=== PATIENT | female | born 1960 | race Caucasian/White ===

== ENCOUNTER → 2019-10-08 11:09 | Outpatient (CLI) | payer OTHER, SELFPAY ==
--- NOTE | ~2019-10-08 | XR_ITS ---
EXAMINATION: XR shoulder RT min 2V EXAM DATE: 10/08/2019 11:28 INDICATION: Right shoulder pain since shoveling one month ago. TECHNIQUE: The following right shoulder projections obtained: frontal projection with internal rotati on, frontal projection with external rotation, Grashey, and axillary (4+ views). There is no prior s tudy for comparison. FINDINGS: There is high riding humeral head, could indicate rotator cuff tear. There is moderate gl enohumeral, mild acromioclavicular joint primary osteoarthritis. There are no acute fractures or disl ocations identified. There is no subcutaneous gas. The soft tissue is unremarkable. There are no radiopaque foreign bodies. IMPRESSION: 1. Moderate right glenohumeral osteoarthritis. 2. Possible chronic rotator cuff tear. Reviewed, dictated and finalized at location B. X SYSTEM ADMIN
== END ==
PROVIDERS: PCP Internal Medicine; Visit Provider Internal Medicine
DX: M19.011 Primary osteoarthritis, right shoulder (principal)
CPT/HCPCS: 73030

== ENCOUNTER 2020-04-02 15:05 | Outpatient (CLI) | payer OTHER, SELFPAY ==
--- NOTE | ~2020-04-02 | MR_ITS ---
EXAMINATION: MR shoulder RT wo con DATE: 04/02/2020 16:16 INDICATION: Right shoulder pain TECHNIQUE: Magnetic resonance imaging (MRI) of the right shoulder was performed without intravenous c ontrast. Sequences included axial PD-weighted FS FSE, coronal oblique PD-weighted FS FSE, coronal obl ique T2-weighted FS FSE, sagittal PD-weighted FS FSE, and sagittal T1-weighted SE. COMPARISON: Right shoulder radiographs dated 10/08/2019 FINDINGS: Coracoacromial arch: The acromion undersurface is flat in morphology (type I) with anterior downsloping. The coracoacromia l ligament is normal. Mild acromioclavicular osteoarthritis with mild subarticular cystic change asfa g the lateral head of the clavicle. Rotator cuff: Mild tendinopathy of the conjoined portion of the supraspinatus and infraspinatus tendons. The anteri or supraspinatus and posterior infraspinatus tendons are normal as are the subscapularis and teres mi nor tendons. Normal rotator cuff muscle bulk and signal. Biceps tendon, glenoid labrum and glenohumeral cartilage: Long head of the biceps tendon is normal. Nearly circumferential tear of the glenoid labrum which spa res the posterior inferior labrum. There is extensive full/near full-thickness cartilage loss with un derlying subarticular edema and cystic change extending from the site of the glenoid into the anterio r and anterosuperior glenoid. Less severe partial thickness cartilage loss of the humeral head with c hondral surface regularity most prominent along the cephalad aspect of the humeral head. Small margin al osteophytes along the inferomedial humeral head. Fluid: Mild synovitis at the recess of the glenohumeral joint space. Small amount of fluid in the long head biceps tendon sheath consistent with mild bicipital tenosynovitis. No loose osteochondral bodies. No abnormal fluid signal at the subacromial/subdeltoid bursa to suggest bursitis. Bones: No fracture or pathologic marrow replacing process. Mild cystic change along the anterior margin of t he lesser tuberosity. IMPRESSION: 1. Moderate glenohumeral osteoarthritis with extensive high-grade glenoid chondromalacia. 2. Near circumferential tear of the glenoid labrum spurring the posterior inferior labrum. 3. Mild tendinopathy without discrete tear of the conjoined portion of the supraspinatus and infraspi natus tendons. Reviewed, dictated and finalized at location A. IMPRESSION: 1. Moderate glenohumeral osteoarthritis with extensive high-grade glenoid chond romalacia. 2. Near circumferential tear of the glenoid labrum spurring the posterior infer ior labrum. 3. Mild tendinopathy without discrete tear of the conjoined portion of the supr aspinatus and infraspinatus tendons.
== END 2020-04-02 15:06 | disposition home or self-care (01) ==
PROVIDERS: PCP Internal Medicine; Visit Provider Internal Medicine
DX: M25.519 Pain in unspecified shoulder (principal); M19.011 Primary osteoarthritis, right shoulder; S43.431A Superior glenoid labrum lesion of right shoulder, initial encounter; M75.81 Other shoulder lesions, right shoulder
CPT/HCPCS: 73221

== ENCOUNTER 2020-09-25 14:17 | Outpatient (CLI) | payer OTHER, SELFPAY ==
--- NOTE | ~2020-09-25 | CT_ITS ---
EXAMINATION: CT shoulder RT wo con DATE: 09/25/2020 14:37 INDICATION: Primary osteoarthritis of the right shoulder TECHNIQUE: High resolution computed tomography (CT) of the right shoulder was performed without intra venous contrast. Additional sagittal and coronal reconstructions were performed. Automated exposure c ontrol and iterative reconstruction technique were employed. The dose-length product was 537.02 mGy-c m. COMPARISON: Right shoulder radiographs dated 10/08/2019 and MRI dated 04/02/2020 FINDINGS: Bone alignment is normal. No fracture. Mild acromion clavicular osteoarthritis. Moderate right glenoh umeral osteoarthritis with subarticular cystic changes along the anterior, central and anteroinferior glenoid. Again seen is mild cystic change along the anterior margin of the lesser tuberosity. No malvin dent joint effusion. No asymmetric muscular atrophy of the rotator cuff or shoulder girdle. No pathol ogically lymphadenopathy at the right axilla, right hilum or visualized mediastinum. Respiratory alcides on in the right lung with no pneumonia, pulmonary edema or other pulmonary infiltrates. IMPRESSION: 1. Moderate right glenoid humeral osteoarthritis with cystic change at the anterior, central and ante roinferior glenoid. 2. Mild right acromio clavicular osteoarthritis. Reviewed, dictated and finalized at location A. GER INTENSIVE CARE IMPRESSION: 1. Moderate right glenoid humeral osteoarthritis with cystic change at the ante rior, central and anteroinferior glenoid. 2. Mild right acromio clavicular osteoarthritis.
== END 2020-09-25 14:18 | disposition home or self-care (01) ==
LOC: ANHIMG 14:23
PROVIDERS: PCP Internal Medicine; Visit Provider Orthopaedic Surgery
DX: M19.011 Primary osteoarthritis, right shoulder (principal)
CPT/HCPCS: 73200

== ENCOUNTER 2020-10-26 12:51 | Outpatient (CLI) | payer OTHER, SELFPAY ==
--- NOTE | 2020-10-26 13:27 | ECG_ITS ---
Measurements Intervals [place] Rate: 85 P: 48 WA: 264 QRS: 72 QRSD: 117 T: 50 QT: 379 QTc: 452 Interpretive Statements SINUS RHYTHM WITH SINUS ARRHYTHMIA WITH FIRST DEGREE AV BLOCK INCOMPLETE RIGHT BUNDLE BRANCH BLOCK DELAYED PRECORDIAL R/S TRANSITION BASELINE ARTIFACT- I, II, III, AVR, AVL, AVF ABNORMAL ECG Electronically Signed On 10-26-2020 13:41:07 CDT by Marcel Hernandez D.O.
[2020-10-26 13:47] LABS: Basophils Percent Auto 0.5 % (0.2-1.2); Eosinophils Absolute Auto 0.2 K/mm3 (0-0.3); Hematocrit 39.4 % (37.0-47.0); Hemoglobin 12.9 g/dL (12.0-15.0); Immature Granulocyte Absolute 0.03 K/mm3 (0.00-0.031); Immature Granulocyte Percent A 0.4 % (0-0.5); Lymphocytes Absolute Auto 1.92 K/mm3 (0.9-3.2); Lymphocytes Percent Auto 25.2 % (18.3-44.2); Mean Corpuscular HGB Conc 32.7 g/dl (32-36); Mean Corpuscular Hemoglobin 28.3 pg (26-34); Mean Corpuscular Volume 86.4 fl (80-100); Mean Platelet Volume 8.9 fl (7.4-10.4); Monocytes Absolute Auto 0.4 K/mm3 (0.1-0.6); Monocytes Percent Auto 4.9 % (2.6-8.5); Neutrophils Absolute Auto 5.1 K/mm3 (1.3-6.7); Platelet Count Result 243 k/mm3 (150-375); Red Blood Count 4.56 M/mm3 (4.2-5.4); Red Cell Distribution Width 13.6 % (11.5-14.5); White Blood Count 7.6 K/mm3 (4.5-10.0)
== END 2020-10-26 12:52 | disposition home or self-care (01) ==
PROVIDERS: PCP Internal Medicine; Visit Provider Orthopaedic Surgery
DX: Z01.818 Encounter for other preprocedural examination (principal); M19.011 Primary osteoarthritis, right shoulder; I10 Essential (primary) hypertension; I45.10 Unspecified right bundle-branch block; I44.0 Atrioventricular block, first degree
CPT/HCPCS: 36415; 85025; 87081; 93005

== ENCOUNTER → 2020-10-31 01:01 | Outpatient (CLI) | payer OTHER, SELFPAY ==
[2020-10-31 19:13] LABS: SARS-CoV-2 RNA PCR Negative
== END ==
PROVIDERS: PCP Internal Medicine; Visit Provider Orthopaedic Surgery
DX: Z01.812 Encounter for preprocedural laboratory examination (principal); Z20.822 Contact with and (suspected) exposure to COVID-19
CPT/HCPCS: C9803; U0003; U0005

== ENCOUNTER 2020-11-03 00:11 | Day surgery (SDC) | payer OTHER, SELFPAY ==
[2020-10-26 12:44] VITALS: BP 142/80; PULSE 94; RESP 20; TEMP 36.9; O2SAT 100
[2020-10-26 13:13] VITALS: BMI 32.8
--- NOTE | 2020-11-02 09:28 | WPDANESEPPF ---
Anes - Initial Pre Proc Eval Procedure: Operation Date: 11/03/20 07:30 Proposed Procedures p Right Anatomic Total Shoulder Arthroplasty - Jassi Bal MD Date/Time: 11/02/20 09:28 Surgeon: Jassi Bal MD Pre Op Diagnosis: Primary OA Right Shoulder Patient Data Age: 60 Gender: F Height: 1.68 m Weight: 92.2 kg Last Vital Signs Temp 36.9 C 10/26/20 12:44 Pulse 94 10/26/20 12:44 Resp 20 10/26/20 12:44 BP 142/80 H 10/26/20 12:44 Pulse Ox 100 10/26/20 12:44 Allergies Allergy/AdvReac Type Severity Reaction Status Date / Time No Known Allergies Allergy Verified 10/28/20 13:43 Home Medications Medication Instructions Recorded Confirmed Type allopurinol 300 mg tablet 300 mg PO DAILY 90 Days #90 tablet 06/10/20 10/28/20 Rx meloxicam 7.5 mg tablet 7.5 mg PO BID 30 Days #60 tablet 07/08/20 10/28/20 Rx ergocalciferol (vitamin D2) 1,250 1,250 mcg PO WEEKLY 90 Days #13 cap 09/02/20 10/28/20 Rx mcg (50,000 unit) capsule atorvastatin 20 mg tablet 20 mg PO DAILY 90 Days #90 tablet 09/17/20 10/28/20 Rx bupropion HCl 150 mg DAILY 10/26/20 10/28/20 History levothyroxine 50 mcg DAILY 10/26/20 10/28/20 History cetirizine 10 mg tablet 10 mg PO QPM 90 Days #90 tablet 10/28/20 10/28/20 Rx hydrochlorothiazide 50 mg tablet 50 mg PO DAILY 90 Days #90 tablet 10/28/20 10/28/20 Rx Patient hx anesthesia problems: none Family hx anesthesia problems: none PMFSH Past Medical History Medical History (Updated 11/02/20 @ 09:28 by Alverto Singleton DO) Acute pain of right shoulder Chronic rhinitis Hypertension Hyperuricemia Hypothyroidism (acquired) Metabolic syndrome Mixed hyperlipidemia Osteoarthritis of right shoulder Tear of right glenoid labrum Tobacco use disorder Vitamin D deficiency, unspecified Surgical History Surgical History H/O: hysterectomy done in 1988 due to uterine fibroid Family History Family History Sibling Cancer Social History Social History Years smoked: 30 Smoking status: Former smoker Tobacco type: cigarettes Second hand tobacco smoke exposure: No Additional smoking assessment comments: STATES QUIT MAY 2020 Alcohol intake: never Substance use: never Substance use type: does not use Living arrangements: with family Spiritual care concerns: No Anes - Eval Final PreProcedure Day of Procedure 11/02/20 09:28 Patient weight: obese Heart: regular rate and rhythm Lungs: clear to auscultation and normal air movement Airway: Mallampati scale class III Neurological: alert and oriented Last oral intake: >/= 8 hours ASA classification: III Emergent: no Anesthetic plan: proceed Anesthesia type and monitoring: general ETT and standard monitoring Informed Consent: The patient's anesthetic plan and its attendant risks and benefits were discussed with the patient/family/POA. Questions were solicited and answers provided to the satisfaction of the patient/family/POA.
--- NOTE | 2020-11-02 09:28 | WPDANESPNB ---
Anes - Peripheral Nerve Block Date/Time: 11/02/20 09:28 I have discussed with the patient/family/POA the placement of a peripheral nerve block for post-operative pain management, including associated risks, benefits, complications, and side effects. Alternative methods of post-operative analgesia were detailed. Questions were solicited and answers provided to the satisfaction of the patient/family/POA. Time-Out: A pre-procedural Time-Out was completed immediately before starting the procedure and confirmed: Patient Identification, Site, Procedure, Patient Position and the Availability of Requisite Equipment. Clinical Indications: Acute post-operative pain management requested by the operative surgeon. Nerve Block Insertion Note Anes-nerve block: interscalene right Patient position: supine Skin prep: chlorhexidine Needle: 22 gauge, stimulating, insulated echogenic needle. Needle length: 50 mm Technique: ultrasound Injectate: bupivacaine 0.5% with epi 5 mcg/ml (30cc- no epi) Observations: tolerated well Complications: none Procedure start time:: 737 Procedure end time:: 741
[2020-11-03] VITALS (11 sets, daily range): BP systolic 106–150; BP diastolic 62–83; PULSE 68–97; RESP 13–20; TEMP 35.7–37.1; O2SAT 94–100
--- NOTE | ~2020-11-03 | XR_ITS ---
EXAMINATION: XR shoulder RT min 2V DATE: 11/03/2020 11:28 INDICATION: Right total shoulder arthroplasty TECHNIQUE: AP and Grashey views of the right shoulder were obtained. COMPARISON: None FINDINGS: Right total shoulder arthroplasty which is in near-anatomic alignment on the provided projections. No fracture. Mild acromioclavicular osteoarthritis. Visualized portions of the lungs are clear. IMPRESSION: Right total shoulder arthroplasty, negative for postoperative purposes. Reviewed, dictated and finalized at location A.
[2020-11-03] MEDS: ACETAMINOPHEN 500 MG TABLET 1000 MG PO (06:39)
[2020-11-03] MEDS: LACTATED RINGERS 1,000 ML 30 ML IV CONT ×2 (06:41→11:07)
[2020-11-03] MEDS: TRANEXAMIC ACID 1,000MG/ISO100 1,000 MG/100 ML BAG 200 MG IVPB (06:56)
--- NOTE | 2020-11-03 07:36 | WPDHPUPDATE1 ---
History and Physical Update Update Date/Time: 11/03/20 07:36 History and Physical has been reviewed, including an updated exam of the patient. There are NO changes in the patient's condition. Risks, benefits, and alternatives have been discussed and questions answered. Patient agrees to proceed with procedure.
--- NOTE | 2020-11-03 07:40 | SUR.PREOP ---
0725-DR. MONTOYA SPOKE WITH PT AND MOM RE: UNSIGNED/UNNOTARIZED ADVANCE DIRECTIVE PACKET, WILL PROCEED WITHOUT ADVANCE DIRECTIVE.
[2020-11-03] MEDS: ceFAZolin 2 GM/D5W 50 ML 2 GM/50 ML BAG IVPB (07:43)
--- NOTE | 2020-11-03 12:04 | ADMGEN ---
This patient, Angie Andrade, was admitted to -. Patient/family oriented to hospital policies and general routines including ID bracelet, bed and alarms, visiting hours, pain management, procedures, bathroom and other care routines, personal items, smoking policy, room service/diet, and visiting hours. Information on how to activate the Rapid Response Team has been discussed. Patient/Family are encouraged to report perceived risks to care and to ask questions if they do not understand what they are told or what they should do.
[2020-11-03] MEDS: SODIUM CHLORIDE 0.9% IV 1,000 ML 125 ML IV CONT (12:55)
--- NOTE | 2020-11-03 16:27 | PM.PROC ---
Procedure Note - Detailed Date of procedure: 11/03/20 Pre-op diagnosis: Primary OA Right Shoulder Post-op diagnosis: same Procedure performed: Right anatomic total shoulder arthroplasty. Lesser tuberosity osteotomy. Biceps tenodesis. Description of procedure: Simplicity stemless implant. Lesser tuberosity osteotomy and osteotomy repair. Biceps tenodesis. Implants: [employer] Simpliciti humeral nucleus size 1, and head size 43. Shoulder Innovations, Glenoid circular in-line peg 22 x 6 millimeter glenoid component. Anesthesia: GETA Surgeon: Jassi Bal MD Field Director: Tova Pink PA-C Estimated blood loss (mL): 200 Findings: Physician medical billing assistant, Tova Pink PA-C, required for surgery; including patient positioning, draping, tissue retraction, maintaining instrument position, cement removal, wound closure, and dressing placement. The patient was given an interscalene block in the preoperative area. Preoperative antibiotics were given. The patient was transferred to the operating room and a general anesthetic was administered. The beach chair position was used at 40 degrees. All bony prominences were padded. The head was carefully stabilized on the Torres head grease maker. A sterile prep and drape was performed in the usual manner with Chloraprep. A longitudinal incision was created at the anterior shoulder just lateral to the deltopectoral interval. Careful dissection was performed to expose the interval and protect the cephalic vein. The vein was retracted medially. A small tear in the vein was repaired with 5-0 Prolene. The upper border of the pectoralis was released. Anterior circumflex vessel branches were suture ligated. The biceps was tenodesed. A lesser tuberosity osteotomy was performed after opening the joint capsule at the rotator interval. The dimensions of the bone were carefully considered. A 1 inch straight osteotome was used to start the osteotomy. It was finished with a curved osteotome. It was tagged for later repair. The inferior capsule was released, exposing the humeral head. Osteophytes were removed. Care was taken to stay on bone to protect the axillary nerve. The anatomic head cut was taken with the oscillating saw. The trials were use to assess the appropriate size implant. The center guide pin was placed and the planer used, followed by the 1st drill. The Blaze was inserted. The cut protector was placed, and attention was turned to the glenoid. Retractors were placed. Releases were carried out for exposure. The subscapularis was mobilized, the inferior capsule and long head of triceps released, and the superior and middle glenohumeral ligaments released as well. Labral tissue was resected. The joint remained very tight. This was predicted based on the preoperative examination. Posterior capsule excision was required. The exposure was perfectly adequate at this time. The sizing template was used and a guide pin was placed. No deformity correction was required. The reamer was placed over the guide pin taken down to create a 2-4 millimeter wall. The peg drill guide was applied and the pegs drilled. The trial component was placed and fit very nicely. Excellent stability was confirmed. The real component was cemented into position. Excess cement was carefully removed. The humerus was prepared for subscapularis repair with the drilling and passage of 3 suture leaders. Also a horizontal mattress tape suture was drilled through the base of the osteotomy and across the center of the osteotomy itself. The trial was checked for proper soft tissue balance, then the real humeral nucleus and head were impacted into position. The shoulder was copiously irrigated periodically with pulsatile lavage. The shoulder was reduced and the subscapularis repaired with number 5 Ethibond suture modified H[place]-Bet[place] sutures, #2 suture tape, and reinforced with number 2 Ethibond suture. The rotator interval was reapproximated distally. The pectoralis t
[2020-11-03] MEDS: MELOXICAM 7.5 MG TABLET PO (17:58)
[2020-11-03] MEDS: DOCUSATE SODIUM 100 MG CAPSULE PO (17:58)
[2020-11-03] MEDS: LORATADINE 10 MG TABLET PO (17:58)
[2020-11-03] MEDS: ASPIRIN 325 MG ENTERIC TABLET PO (20:03)
[2020-11-04 01:38] VITALS: BP 121/76; PULSE 92; RESP 16; TEMP 36.2; O2SAT 97
[2020-11-04 05:38] VITALS: BP 111/74; PULSE 76; RESP 18; TEMP 36; O2SAT 98
[2020-11-04] MEDS: LEVOTHYROXINE SODIUM 50 MCG TABLET PO (05:52)
--- NOTE | 2020-11-04 07:48 | WPDANESPN ---
Anes - Prog Note Post-Op Date/Time: 11/04/20 07:48 Cardiovascular status: normal Respiratory status: normal Airway patency: baseline Mental status: baseline Post-Op hydration status: normal Vital Signs: Last Vital Signs Temp 96.8 F L 11/04/20 05:38 Pulse 76 11/04/20 05:38 Resp 18 11/04/20 05:38 BP 111/74 11/04/20 05:38 Pulse Ox 98 11/04/20 05:38 Pain Score (VAS): 08/23 I/O: Intake & Output 11/03/20 11/03/20 11/04/20 15:59 23:59 07:59 Intake Total 440 1070 600 Output Total 100 650 Balance 440 970 -50 Patient Feedback: Patient satisfied with anesthetic care.
[2020-11-04] MEDS: MELOXICAM 7.5 MG TABLET PO (08:21)
[2020-11-04] MEDS: ASPIRIN 325 MG ENTERIC TABLET PO (08:21)
[2020-11-04] MEDS: hydroCHLOROthiazide 25 MG TABLET 50 MG PO (08:21)
[2020-11-04] MEDS: buPROPion HCL XL (24 HR) 150 MG TABCR PO (08:21)
[2020-11-04] MEDS: allopurinoL 300 MG TABLET PO (08:21)
[2020-11-04] MEDS: DOCUSATE SODIUM 100 MG CAPSULE PO (08:21)
[2020-11-04] MEDS: ATORVASTATIN 20 MG TABLET PO (08:21)
[2020-11-04] MEDS: oxyCODONE HCL (*CRX) 5 MG TAB IR 10 MG PO (09:47)
[2020-11-04 10:00] VITALS: BP 134/75; PULSE 66; RESP 16; TEMP 36.7; O2SAT 99
--- NOTE | 2020-11-04 12:13 | P.DS_ITS ---
DS: Admitting Diagnosis Admitting Diagnosis Admitting Diagnosis: Glenohumeral joint arthritis DS: Discharge Diagnosis Discharge Diagnosis (1) Status post reverse total arthroplasty of right shoulder: Code(s): Z96.611 - Presence of right artificial shoulder joint Status: Acute Assessment and Plan: Patient is postoperative day 1 anatomic total shoulder arthroplasty. Patient progressing well. She has had initial physical therapy and occupational therapy. Pain is controlled with oral pain medications. Discussed postoperative wound care, expectations, and exercises. Patient shows good understanding. New follow-up appointment made for Monday November 09, 2020 at 2:30 p.m.. Patient notified. DS: Summary Hospital Course Hospital Course: Right anatomic total shoulder arthroplasty. No complication s. Patient has had initial physical therapy and occupational therapy. Status at Discharge Functional status at discharge: independent ambulation Overall status at discharge: patient is progressing back to baseline Time Spent with Patient Time attestation: Total time spent providing and/or coordinating discharge services: Exam Narrative: Exam Narrative: Overweight Female. Alert and oriented x3. No acute distress. Resting comfortably in chair. Wearing sling. Dressing dry and intact with no drainage. Moderate swelling. Moderate ecchymosis. No erythema. Range of motion limited due to pain. Good finger, wrist, elbow range of motion. Neurologic status intact. Light touch sensation intact. Normal capillary refill. No varicosities. Distal pulses palpable. Discharge Plan Discharge Patient Disposition: Home, Self-Care Discharge Instructions: See instruction sheet Patient Instructions: Joint Replacement Surgery (DC), Shoulder Arthroplasty (GEN) Follow-up/Referrals: Tova Pink PA [Physician [employer]] - ( Monday11/09/2020 at 2:30 p.m.) Discharge Medications: New oxycodone-acetaminophen 5-325 mg tablet 1 - 2 tablet PO Q4-6H MDD 6 PRN (Reason: pain) Qty: 30 RF: 0 aspirin 81 mg tablet,delayed release (DR/EC) 81 mg PO BID 14 Days Qty: 28 RF: 0 Continued meloxicam 7.5 mg tablet 7.5 mg PO BID 30 Days Qty: 60 RF: 5 cetirizine 10 mg tablet 10 mg PO QPM 90 Days Qty: 90 RF: 1 hydrochlorothiazide 50 mg tablet 50 mg PO DAILY 90 Days Qty: 90 RF: 1 levothyroxine 50 mcg tablet 50 mcg DAILY RF: 0 bupropion HCl 150 mg tablet extended release 24 hr 150 mg DAILY RF: 0 allopurinol 300 mg tablet 300 mg PO DAILY 90 Days Qty: 90 RF: 2 ergocalciferol (vitamin D2) 1,250 mcg (50,000 unit) capsule 1,250 mcg PO WEEKLY 90 Days Qty: 13 RF: 1 atorvastatin 20 mg tablet 20 mg PO DAILY 90 Days Qty: 90 RF: 1 Other Ambulatory Orders: Type and Screen 14 Day (Routine) Timeframe: 2 Years Location: Determined by Patient Ordered By: Jassi Bal
[2020-11-04 12:25] VITALS: O2SAT 97
== END 2020-11-04 12:52 | disposition home or self-care (01) ==
LOC: ANHSURGERY 05:48 → ANH2MED 12:06
PROVIDERS: PCP Internal Medicine; Visit Provider Orthopaedic Surgery
PROC: (CPT 23472; principal; 2020-11-03 07:30)
DX: M19.011 Primary osteoarthritis, right shoulder (principal); G89.18 Other acute postprocedural pain; I10 Essential (primary) hypertension; E03.9 Hypothyroidism, unspecified; E78.2 Mixed hyperlipidemia; E55.9 Vitamin D deficiency, unspecified; Z87.891 Personal history of nicotine dependence; E66.9 Obesity, unspecified; Z68.32 Body mass index [BMI] 32.0-32.9, adult
CPT/HCPCS: 23472; 24400; 64415; 36415; 73030; 86850; 86900; 86901; 97110; 97161; 97165; 97530; 97535; A4565; A9270; C1713; C1776; J0131; J0171; J0330; J0690; J1100; J1885; J2250; J2270; J2370; J2405; J2704; J2710; J2795; J3010; J7030; J7120

== ENCOUNTER 2021-10-29 16:42 | Emergency (ER) | payer OTHER, SELFPAY ==
[2021-10-29 16:54] VITALS: BP 161/94; PULSE 85; RESP 16; TEMP 37.3; O2SAT 98
--- NOTE | 2021-10-29 17:07 | ED.SKABFB ---
HPI - Skin/Abscess/Foreign Bdy General Chief complaint: Skin/Abscess/Foreign Body Stated complaint: poison mena Time Seen by Provider: 10/29/21 16:56 Source: patient and RN notes reviewed Mode of arrival: ambulatory Limitations: no limitations History of Present Illness HPI narrative: Patient presents today complaining of a 2-day history of poison mena. She was exposed at home when clearing brush. Rash is primarily to the right side of the face and scantly to the dorsum of the right hand in between the fingers. Patient has tried some topical Benadryl cream without relief. complaint: rash Related Data Home Medications Medication Instructions Recorded Confirmed bupropion HCl 150 mg DAILY 10/26/20 10/29/21 levothyroxine 50 mcg DAILY 10/26/20 10/29/21 Allergies Allergy/AdvReac Type Severity Reaction Status Date / Time No Known Allergies Allergy Verified 10/29/21 16:44 Review of Systems Review of Systems: CONSTITUTIONAL: Denies body aches, fever, chills, or sweats. EYES: Denies visual changes, redness, or discharge. ENT: Denies rhinorrhea, congestion, sore throat, or otalgia. CARDIOVASCULAR: Denies chest pain, palpitations, or edema. RESPIRATORY: Denies cough or dyspnea. GASTROINTESTINAL: Denies abdominal pain, nausea, vomiting, or diarrhea. GENITOURINARY: Denies dysuria or hematuria. SKIN: Denies wounds.+ Pruritic rash MUSCULOSKELETAL: Denies back pain, joint pain, or myalgia. NEUROLOGIC: Denies headache, numbness, tingling, or weakness. PSYCH: Denies depression or anxiety. [facility] Past Medical History Medical History Acute pain of right shoulder Chronic rhinitis Essential (primary) hypertension Hypertension Hyperuricemia Hypothyroidism (acquired) Metabolic syndrome Mixed hyperlipidemia Osteoarthritis of right shoulder Tear of right glenoid labrum Tobacco use disorder Vitamin D deficiency, unspecified Surgical History Surgical History H/O: hysterectomy done in 1988 due to uterine fibroid History of total replacement of right shoulder joint (~11/03/20) Family History Family History Sibling Cancer Social History Social History Years smoked: 30 Smoking status: Never smoker Tobacco type: cigarettes Second hand tobacco smoke exposure: No Additional smoking assessment comments: STATES QUIT MAY 2020 Alcohol intake: never Substance use: never Substance use type: does not use Spiritual care concerns: No Comments At time of signature, I have reviewed and agree with nursing past medical, surgical, social and family history unless otherwise noted. Please see nursing chart for further information. There is no relevant family history pertinent to the presenting complaint Exam Narrative: GENERAL: Well-appearing, well-nourished, and in no acute distress. HEAD: Normocephalic, atraumatic. EYES: EOMI. No redness or drainage. Conjunctivae normal. ENT: Mucous membranes pink and moist. NECK: Normal AROM. CHEST: No respiratory distress. EXTREMITIES: Normal range of motion. No edema. SKIN: Warm, dry.. Capillary refill normal. Normal skin turgor. Mildly erythematous and edematous rash under the right eye, extending to the right lower eyelid. NEURO: No focal deficits. Alert and oriented x3. Gait steady. PSYCH: Normal affect. No signs of depression or anxiety. Course Course Level of Care: Express Care Visit Vital Signs Vital signs: Vital Signs Temperature 99.1 F 10/29/21 16:54 Pulse Rate 85 10/29/21 16:54 Respiratory Rate 16 10/29/21 16:54 Blood Pressure 161/94 H 10/29/21 16:54 Pulse Oximetry 98 10/29/21 16:54 Temperature 99.1 F 10/29/21 16:54 Pulse Rate 85 10/29/21 16:54 Respiratory Rate 16 10/29/21 16:54 Blood
== END 2021-10-29 17:16 | disposition home or self-care (01) ==
PROVIDERS: Emergency Provider Nurse Practitioner
DX: L23.7 Allergic contact dermatitis due to plants, except food (principal); Z87.891 Personal history of nicotine dependence; I10 Essential (primary) hypertension; E03.9 Hypothyroidism, unspecified; E78.2 Mixed hyperlipidemia; M19.011 Primary osteoarthritis, right shoulder; Z96.611 Presence of right artificial shoulder joint
CPT/HCPCS: 99213; G0463

== ENCOUNTER 2022-01-22 08:11 | Emergency (ER) | payer OTHER, SELFPAY ==
--- NOTE | 2022-01-22 08:17 | ED.EAR ---
HPI - Ear Problem General Chief complaint: Ear Stated complaint: Ear Pain Time Seen by Provider: 01/22/22 08:30 Source: patient and RN notes reviewed Mode of arrival: ambulatory Limitations: no limitations History of Present Illness HPI Narrative: 62-year-old female presents to the [facility] with complaints of right ear pain since yesterday. Like she had water in her ear and was using a Q-tip. Denies fevers. No dizziness or headaches. No chest pain or abdominal pain. States that she tried using a Q-tip with no relief. Location: left ear Duration: constant Related Data Home Medications Medication Instructions Recorded Confirmed bupropion HCl 150 mg 24 hr tablet, 150 mg DAILY 10/26/20 01/22/22 extended release levothyroxine 50 mcg tablet 50 mcg PO DAILY 10/26/20 01/22/22 cetirizine 10 mg tablet 10 mg PO DAILY 01/22/22 01/22/22 Allergies Allergy/AdvReac Type Severity Reaction Status Date / Time No Known Allergies Allergy Verified 01/22/22 08:26 Review of Systems Review of Systems: All systems reviewed & are unremarkable except as noted in HPI and below Constitutional: Constitutional: Reports no additional constitutional complaints, Denies chills and Denies fever(s) Eyes: Eyes: Reports no additional eye complaints ENT: Reports as per HPI (Right ear pain), Denies vertigo, Denies dizziness, Denies nasal congestion and Denies sore throat Cardiovascular: Cardiovascular: Reports no additional cardiovascular complaints Respiratory: Respiratory: Reports no additional respiratory complaints Gastrointestinal: Gastrointestinal: Reports no additional gastrointestinal complaints Musculoskeletal: Musculoskeletal: Reports no additional musculoskeletal complaints Integumentary/Breasts: Skin/Breast: Reports system reviewed and no additional complaints, except as docu Neurologic: Reports system reviewed and no additional complaints, except as documented Psychiatric: Psychiatric: Reports no additional psychiatric complaints Allergic/Immunologic: Allergic/Immunologic: Reports no additional allergic/immunologic complaints [facility] Past Medical History Medical History Acute pain of right shoulder Chronic rhinitis Essential (primary) hypertension Hypertension Hyperuricemia Hypothyroidism (acquired) Metabolic syndrome Mixed hyperlipidemia Osteoarthritis of right shoulder Tear of right glenoid labrum Tobacco use disorder Vitamin D deficiency, unspecified Surgical History Surgical History H/O: hysterectomy done in 1988 due to uterine fibroid History of total replacement of right shoulder joint (~11/03/20) Family History Family History Sibling Cancer Social History Social History Years smoked: 30 Smoking status: Former smoker Tobacco type: cigarettes Second hand tobacco smoke exposure: No Additional smoking assessment comments: STATES QUIT MAY 2020 Alcohol intake: never Substance use: never Substance use type: does not use Spiritual care concerns: No Comments At the time of my signature, I reviewed and agree with the nursing past medical, surgical, social, and family history. There is no relevant family history pertinent to the patient complaint. Exam Const: General: healthy appearing, no acute distress and alert Nutritional Appearance: well nourished Orientation/consciousness: patient oriented x3 Limitations: no limitations HENMT: Head: normal to inspection Ears: external ears normal, TM's normal bilaterally (Post cerumen removal), mastoids normal and Abnormal EAC present excessive cerumen bilateral, erythema on the right (Post cerumen removal) and EAC tenderness on the right General nose exam: Normal external nose present and Normal nasal mucous membranes and turbinat
[2022-01-22 08:21] VITALS: BP 155/94; PULSE 75; RESP 20; TEMP 37; O2SAT 100
== END 2022-01-22 09:05 | disposition home or self-care (01) ==
PROVIDERS: Emergency Provider Nurse Practitioner; PCP Nurse Practitioner Adult Health
DX: H66.91 Otitis media, unspecified, right ear (principal); H61.23 Impacted cerumen, bilateral; Z87.891 Personal history of nicotine dependence; I10 Essential (primary) hypertension; E03.9 Hypothyroidism, unspecified; E78.2 Mixed hyperlipidemia; M19.011 Primary osteoarthritis, right shoulder; E55.9 Vitamin D deficiency, unspecified; E88.81 Metabolic syndrome and other insulin resistance; Z96.611 Presence of right artificial shoulder joint
CPT/HCPCS: 69210; 99213; G0463

== ENCOUNTER 2022-01-24 10:04 | Outpatient (CLI) | payer OTHER, SELFPAY ==
--- NOTE | ~2022-01-24 | CT_ITS ---
CT OF LEFT shoulder EXAMINATION: CT shoulder LT wo con DATE: 01/24/2022 10:28 INDICATION: Left shoulder osteoarthritis TECHNIQUE: Computed tomography (CT) of the left shoulder was performed without intravenous contrast. Automated exposure control and iterative reconstruction technique were employed. The dose-length prod uct was 421.56 mGy-cm. COMPARISON: X-ray shoulder 12/22/2021. FINDINGS: Limitations: None Bones: Anterolateral downsloping of the type I acromion. Mild AC joint hypertrophy. Superior humeral head migration. Moderate glenohumeral narrowing, with subchondral sclerosis cortical irregularity, an d multifocal subchondral cyst formation. Soft Tissues:The soft tissues appear within normal limits. No evidence of mass or lymphadenopathy. Fluid: No significant fluid within the joint capsule or surrounding bursal spaces. IMPRESSION: Moderate glenohumeral osteoarthritis. Osseous compromise. Findings suggestive of rotator cuff patholo gy. Reviewed, dictated and finalized at location K. IMPRESSION: Moderate glenohumeral osteoarthritis. Osseous compromise. Findings suggestive o f rotator cuff pathology.
== END 2022-01-24 10:05 | disposition home or self-care (01) ==
LOC: ANHIMG 10:07
PROVIDERS: PCP Nurse Practitioner Adult Health; Visit Provider Orthopaedic Surgery
DX: M19.012 Primary osteoarthritis, left shoulder (principal)
CPT/HCPCS: 73200

== ENCOUNTER 2022-02-21 11:26 | Outpatient (CLI) | payer OTHER, SELFPAY ==
--- NOTE | 2022-02-21 12:38 | ECG_ITS ---
Measurements Intervals [place] Rate: 75 P: 52 ND: 235 QRS: 56 QRSD: 114 T: 41 QT: 375 QTc: 421 Interpretive Statements SINUS RHYTHM WITH FIRST DEGREE AV BLOCK INTRAVENTRICULAR CONDUCTION DELAY BASELINE ARTIFACT- I, II, III, AVR, AVL, AVF ABNORMAL ECG Electronically Signed On 02-21-2022 12:50:29 CDT by Marcel Hernandez D.O.
[2022-02-21 12:59] LABS: Basophils Percent Auto 0.4 % (0.2-1.2); Eosinophils Absolute Auto 0.1 K/mm3 (0-0.3); Eosinophils Percent Auto 0.9 % (0-4.4); Hematocrit 41.4 % (37.0-47.0); Hemoglobin 13.5 g/dL (12.0-15.0); Immature Granulocyte Absolute 0.02 K/mm3 (0.00-0.031); Immature Granulocyte Percent A 0.3 % (0-0.5); Lymphocytes Absolute Auto 1.43 K/mm3 (0.9-3.2); Lymphocytes Percent Auto 20.7 % (18.3-44.2); Mean Corpuscular HGB Conc 32.6 g/dl (32-36); Mean Corpuscular Hemoglobin 27.6 pg (26-34); Mean Corpuscular Volume 84.7 fl (80-100); Mean Platelet Volume 8.6 fl (7.4-10.4); Monocytes Absolute Auto 0.7 K/mm3 (0.1-0.6); Neutrophils Absolute Auto 4.7 K/mm3 (1.3-6.7); Neutrophils Percent Auto 67.7 % (45.5-73.1); Platelet Count Result 275 k/mm3 (150-375); Red Blood Count 4.89 M/mm3 (4.2-5.4); Red Cell Distribution Width 13.7 % (11.5-14.5); White Blood Count 6.9 K/mm3 (4.5-10.0)
[2022-02-21 13:12] LABS: Anion Gap 6 mmol/L (8-16); Blood Urea Nitrogen 14 mg/dL (7-17); Calcium 9.4 mg/dL (8.4-10.2); Carbon Dioxide 31 mmol/L (22-30); Chloride 102 mmol/L (98-107); Estimated Glomerular Filt Rate > 60; Glucose 81 mg/dL (65-110); Potassium 3.8 mmol/L (3.4-5.0); Sodium 139 mmol/L (137-145)
== END 2022-02-21 11:27 | disposition home or self-care (01) ==
LOC: ANHSURGERY 11:30
PROVIDERS: Anesthesiology; PCP Nurse Practitioner Adult Health; Visit Provider Orthopaedic Surgery
DX: Z01.818 Encounter for other preprocedural examination (principal); I10 Essential (primary) hypertension; M19.012 Primary osteoarthritis, left shoulder; R94.31 Abnormal electrocardiogram [ECG] [EKG]
CPT/HCPCS: 36415; 80048; 85025; 87081; 93005

== ENCOUNTER 2022-03-17 00:07 | Day surgery (SDC) | payer OTHER, SELFPAY ==
--- NOTE | 2022-02-21 12:01 | PC.NURSE ---
Report to the Outpatient Waiting Room, entrance under the green pavilion located off [facility], at time 0600 on date ___03/17/22____. OR Time: _729 . - You and your visitor will be asked a series of questions to screen for COVID 19 for your protection. - Only one visitor is allowed at this time. - The patient visitor is requested to leave or wait in car when not with patient. - A mask is required within the hospital. Patients may have clear liquids (water, carbonated beverages, clear teas, apple juice) until 3 hours prior to surgery with a maximum of 20 ounces. - No food from midnight until time of surgery - Infants may have breast milk until 4 hours before surgery, infant formula 6 hours prior to surgery. - Children will be allowed to drink immediately following surgery. If applicable, please bring a bottle or sippy cup to assist with drinking. Juice, water, soda, and popsicles are readily available. For infants on formula, please bring formula the day of surgery. Pacifiers are allowed. Take the following medications with a SIP of water the morning of surgery: ___LEVOTHYROXINE,BUPROPION Medications to discontinue per physician ____MELOXICAM 7 DAYS PRE OP MAY TAKE TYLENOL IF NEEDED FOR PAIN Date to take last dose__03/09/22 Please no make-up, nail english, hairspray, perfume, deodorant, or body powder the day of surgery. No jewelry (including any body piercings) or valuables the day of surgery, leave them at home. Please take a shower or bath the night before, or the morning of, surgery with an antibacterial soap. Wear comfortable, loose fitting clothing. Children are encouraged to wear pajamas. - Jewelry must be removed prior to entering the operating room. Rings and piercings that are not removed may be cut off. - The hospital will not accept responsibility for valuables. - Please leave all valuables, including medications, at home the day of surgery. If you are going home after surgery, a licensed driver guide must drive you home. - NO public transportation without another adult. - We recommend that an adult stay with you for 24 hours following discharge. - We also recommend that you do not drive, make important decision, drink alcoholic beverages, or take any drugs that were not prescribed by your health care provider for at least 24 hours after your discharge time. For Pediatric surgeries, we recommend two adults accompany the child home (only one inside the building at this time). Follow any additional instructions given to you from your surgeon. If you or anyone in your household have experienced Covid symptoms in the past week, please notify your surgeon or the nurse liaison at the phone number below for possible testing. VERBAL AND WRITTEN instructions given to _PATIENT and asked if any additional questions and then verbalized understanding. Patient advised to call surgeon office or pre surgery nurse liaison [phone] if any additional questions.
[2022-02-21 12:21] VITALS: BP 137/87; PULSE 95; RESP 18; TEMP 36.7; O2SAT 98; BMI 30.9
--- NOTE | 2022-03-16 10:41 | WPDANESEPPF ---
Anes - Initial Pre Proc Eval Procedure: Operation Date: 03/17/22 07:30 Proposed Procedures p Left Anatomic Total Shoulder Arthroplasty - Jassi Bal MD Date/Time: 03/16/22 10:41 Surgeon: Jassi Bal MD Pre Op Diagnosis: Prim O A Lt Shoulder Patient Data Age: 62 Gender: F Height: 1.65 m Weight: 84.3 kg Last Vital Signs Temp 36.7 C 02/21/22 12:21 Pulse 95 02/21/22 12:21 Resp 18 02/21/22 12:21 BP 137/87 02/21/22 12:21 Pulse Ox 98 02/21/22 12:21 O2 Del Method Room Air 02/21/22 12:21 Allergies Allergy/AdvReac Type Severity Reaction Status Date / Time No Known Allergies Allergy Verified 03/17/22 06:08 Home Medications Medication Instructions Recorded Confirmed Type allopurinol 300 mg tablet 300 mg PO DAILY 90 days #90 tabs 06/10/20 03/17/22 Rx meloxicam 7.5 mg tablet 7.5 mg PO BID 30 days #60 tabs 07/08/20 03/17/22 Rx bupropion HCl 150 mg 24 hr tablet, 150 mg PO DAILY STOP SMOKING 10/26/20 03/17/22 History extended release levothyroxine 50 mcg tablet 50 mcg PO DAILY 10/26/20 03/17/22 History hydrochlorothiazide 50 mg tablet 50 mg PO DAILY 90 days #90 tabs 10/28/20 03/17/22 Rx cetirizine 10 mg tablet 10 mg PO DAILY 01/22/22 03/17/22 History atorvastatin 20 mg tablet 20 mg PO HS 02/21/22 03/17/22 History Patient hx anesthesia problems: none Family hx anesthesia problems: none Results Review: All pre-operative results and documents have been reviewed as part of the pre-operative evaluation. [facility] Past Medical History Medical History Acute pain of right shoulder Chronic rhinitis Essential (primary) hypertension Hypertension Hyperuricemia Hypothyroidism (acquired) Metabolic syndrome Mixed hyperlipidemia Osteoarthritis of right shoulder Tear of right glenoid labrum Tobacco use disorder Vitamin D deficiency, unspecified Surgical History Surgical History H/O: hysterectomy done in 1988 due to uterine fibroid History of total replacement of right shoulder joint (~11/03/20) Family History Family History Sibling Cancer Social History Social History Smoking packs per day: 0.5 Smoking cigarettes per day: 10.0 Years smoked: 30 Smoking pack-years: 15.00 Smoking status: Former smoker Tobacco type: cigarettes Second hand tobacco smoke exposure: No Smoking end date: 08/14/19 Additional smoking assessment comments: STATES QUIT MAY 2020 Alcohol intake: never Substance use: never Substance use type: does not use Living arrangements: with roommate(s) Spiritual care concerns: No Anes - Eval Final PreProcedure Day of Procedure 03/16/22 10:41 Patient weight: obese Heart: regular rate and rhythm Lungs: clear to auscultation and normal air movement Airway: Mallampati scale class III Neurological: alert and oriented Last oral intake: >/= 8 hours ASA classification: III Emergent: no Anesthetic plan: proceed Anesthesia type and monitoring: general ETT and standard monitoring Results Review: All pre-operative results and documents have been reviewed as part of the pre-operative evaluation. Informed Consent: The patient's anesthetic plan and its attendant risks and benefits were discussed with the patient/family/POA. Questions were solicited and answers provided to the satisfaction of the patient/family/POA.
[2022-03-17] VITALS (16 sets, daily range): BP systolic 97–151; BP diastolic 57–87; PULSE 62–96; RESP 10–20; TEMP 35.4–36.6; O2SAT 95–100
--- NOTE | ~2022-03-17 | XR_ITS ---
XR shoulder LT min 2V DATE: 03/17/2022 11:03 INDICATION: Left shoulder replacement, postoperative examination TECHNIQUE: Postoperative portable AP and Neer views COMPARISON: 01/24/2022 CT left shoulder 12/22/2021 left shoulder FINDINGS: Mild subcutaneous emphysema as expected shortly following left glenohumeral joint replaceme nt. There is normal alignment at the acromion clavicular and glenohumeral joints. No fracture or disl ocation, periosteal reaction or bone destruction or abnormal soft tissue calcification. IMPRESSION: Status post left glenohumeral joint replacement Reviewed, dictated and finalized at location B.
[2022-03-17] MEDS: ACETAMINOPHEN 500 MG TABLET 1000 MG PO (06:24)
[2022-03-17] MEDS: LACTATED RINGERS 1,000 ML 30 ML IV CONT ×2 (06:34→10:45)
[2022-03-17] MEDS: TRANEXAMIC ACID 1,000MG/ISO100 1,000 MG/100 ML BAG 200 MG IVPB (06:54)
--- NOTE | 2022-03-17 07:07 | WPDANESPNB ---
Anes - Peripheral Nerve Block Date/Time: 03/17/22 07:07 I have discussed with the patient/family/POA the placement of a peripheral nerve block for post-operative pain management, including associated risks, benefits, complications, and side effects. Alternative methods of post-operative analgesia were detailed. Questions were solicited and answers provided to the satisfaction of the patient/family/POA. Time-Out: A pre-procedural Time-Out was completed immediately before starting the procedure and confirmed: Patient Identification, Site, Procedure, Patient Position and the Availability of Requisite Equipment. Clinical Indications: Acute post-operative pain management requested by the operative surgeon. Nerve Block Insertion Note Anes-nerve block: supraclavicular left Patient position: supine Skin prep: chlorhexidine Needle: 22 gauge, stimulating, insulated echogenic needle. Needle length: 80 mm Technique: ultrasound (in plane) Injectate: bupivacaine 0.5% with epi 5 mcg/ml (20cc) Observations: tolerated well Complications: none Procedure start time:: 720 Procedure end time:: 725
--- NOTE | 2022-03-17 07:22 | WPDHPUPDATE1 ---
History and Physical Update Update Date/Time: 03/17/22 07:22 History and Physical has been reviewed, including an updated exam of the patient. There are NO changes in the patient's condition. Risks, benefits, and alternatives have been discussed and questions answered. Patient agrees to proceed with procedure.
[2022-03-17] MEDS: ceFAZolin 2 GM/D5W 50 ML 2 GM/50 ML BAG IVPB ×3 (07:32→23:19)
[2022-03-17] MEDS: VANCOMYCIN HCL 1,000 MG VIAL 1000 MG TOPICAL (10:00)
[2022-03-17] MEDS: MELOXICAM 7.5 MG TABLET PO (16:41)
[2022-03-17] MEDS: SENNA/DOCUSATE SODIUM TABLET 2 TAB PO (16:41)
[2022-03-17] MEDS: ASPIRIN 81 MG ENTERIC TABLET PO (16:42)
[2022-03-17] MEDS: ATORVASTATIN 20 MG TABLET PO (21:19)
[2022-03-17] MEDS: FAMOTIDINE 20 MG TABLET PO (21:19)
[2022-03-18 03:43] VITALS: BP 125/76; PULSE 68; RESP 20; TEMP 36; O2SAT 100
[2022-03-18] MEDS: LEVOTHYROXINE SODIUM 50 MCG TABLET PO (06:39)
[2022-03-18] MEDS: ceFAZolin 2 GM/D5W 50 ML 2 GM/50 ML BAG IVPB (06:39)
--- NOTE | 2022-03-18 08:29 | PM.DS ---
DS: Admitting Diagnosis Discharge Date 03/18/22 Admitting Diagnosis Left shoulder arthritis DS: Discharge Diagnosis Discharge Diagnosis (1) Status post total replacement of left shoulder: Code(s): Z96.612 - Presence of left artificial shoulder joint Status: Acute Assessment and Plan: Postop day 1: Left total shoulder arthroplasty. Patient tolerated procedure well. No complications. Pain manageable with pain medication. We had a lengthy discussion regarding postoperative wound care, limitations, expectations, and exercises. Patient shows good understanding. She has had initial physical therapy and is tolerating it well. DVT prophylaxis: 81 mg baby aspirin b.i.d. for 14 days. Pain medication: Percocet. Patient has followup appointment with Dr. Bal in 3 weeks. DS: Summary Hospital Course Reason for hospitalization: Total shoulder arthroplasty Hospital Course: Patient tolerated procedure well. Has had initial PT/OT. Status at Discharge Functional status at discharge: uses cane/walker Overall status at discharge: patient is progressing back to baseline Time Spent with Patient Time attestation: Total time spent providing and/or coordinating discharge services: Exam Narrative: Overweight 62 y/o female. Resting comfortably in a chair. Wearing sling. Wearing compression socks bilaterally. Dressing dry and intact with no drainage. Moderate swelling. Moderate ecchymosis. No erythema. No hematoma. Range of motion limited due to pain. Calf nontender. Neurologic status intact. No varicosities. Distal pulses palpable. Discharge Plan Discharge Patient Disposition: Home, Self-Care Discharge Instructions: See green instruction sheets Patient Instructions: Pain Management (DC) Follow-up/Referrals: Tova Kyle PA [Physician Anthropology Department Chair] - Discharge Medications: New aspirin 81 mg tablet,delayed release (DR/EC) 81 mg PO BID 14 Days Qty: 28 0RF oxycodone-acetaminophen 5-325 mg tablet 1 - 2 tablet PO Q4-6H MDD 6 PRN (Reason: pain) Qty: 30 0RF Continued cetirizine 10 mg tablet 10 mg PO DAILY meloxicam 7.5 mg tablet 7.5 mg PO BID 30 Days Qty: 60 5RF hydrochlorothiazide 50 mg tablet 50 mg PO DAILY 90 Days Qty: 90 1RF levothyroxine 50 mcg tablet 50 mcg PO DAILY Rx Instructions: TAKE 1 TABLET BY MOUTH DAILY bupropion HCl 150 mg tablet extended release 24 hr 150 mg PO DAILY Rx Instructions: TAKE 1 TABLET BY MOUTH EVERY MORNING atorvastatin 20 mg tablet 20 mg PO HS allopurinol 300 mg tablet 300 mg PO DAILY 90 Days Qty: 90 2RF
[2022-03-18] MEDS: ASPIRIN 81 MG ENTERIC TABLET PO (08:58)
[2022-03-18] MEDS: allopurinoL 300 MG TABLET PO (08:58)
[2022-03-18] MEDS: buPROPion HCL XL (24 HR) 150 MG TABCR PO (08:58)
[2022-03-18] MEDS: SENNA/DOCUSATE SODIUM TABLET 2 TAB PO (08:58)
[2022-03-18] MEDS: LORATADINE 10 MG TABLET PO (08:58)
[2022-03-18] MEDS: hydroCHLOROthiazide 25 MG TABLET 50 MG PO (08:58)
[2022-03-18] MEDS: FAMOTIDINE 20 MG TABLET PO (08:58)
[2022-03-18] MEDS: polyethylene glycoL 3350 17 GM POWD.PACK PO (08:58)
[2022-03-18] MEDS: MELOXICAM 7.5 MG TABLET PO (08:59)
[2022-03-18 09:06] VITALS: BP 135/76
--- NOTE | 2022-03-18 09:36 | W.PM.PROC2 ---
Procedure Note - Detailed Date of Procedure 03/17/22 Pre-op Diagnosis Prim O A Lt Shoulder Post-op Diagnosis Same Procedure Performed Anatomic total shoulder arthroplasty, left. Surgeon Jassi Bal MD Court Reporter Tova Kyle PA-C Anesthesia General and Regional (Interscalene block.) Findings Excellent bone quality. Preoperative contracture improved greatly with manipulation under anesthesia. Rotator cuff health normal. Minor glenoid bone cysts. No glenoid deformity. Description of Procedure The patient was given an interscalene block in the preoperative area. Preoperative antibiotics were given. The patient was transferred to the operating room and a general anesthetic was administered. The beach chair position was used at 35 degrees. All bony prominences were padded. The head was carefully stabilized on the Frost head rigger. A sterile prep and drape was performed in the usual manner with Chloraprep. A longitudinal incision was created at the anterior shoulder just lateral to the deltopectoral interval. Careful dissection was performed to expose the interval and protect the cephalic vein. The vein was retracted medially. The upper border of the pectoralis was released. Anterior circumflex vessel branches were suture ligated. The biceps was tenodesed. A small lesser tuberosity osteotomy was performed after opening the joint capsule at the rotator interval. The inferior capsule was released, exposing the humeral head. Osteophytes were removed. Care was taken to stay on bone to protect the axillary nerve. A Fukuda was placed in the joint. The subscapularis was mobilized, the inferior capsule and long head of triceps released, and the superior and middle glenohumeral ligaments released as well. Attention was turned to the humerus again. The anatomic head cut was taken with the oscillating saw. Sounding and broaching was performed. The neck anteversion and inclination were carefully assessed. Head sizing and offset were determined. The cut protector was placed, and attention was turned to the glenoid. Retractors were placed. Releases were carried out for exposure. Labral tissue was resected. The sizing template was used and a guide pin was placed. No deformity correction was performed. The reamer was placed over the guide pin taken down to create a 2-3 millimeter minimal wall. The peg drill guide was applied and the pegs drilled. The trial component was placed and fit very nicely. Excellent stability was confirmed. The real component was cemented into position. Excess cement was carefully removed. The humerus was prepared for subscapularis repair with the drilling and passage of 3 suture leaders. The real humeral stem and head were impacted into position. The shoulder was copiously irrigated periodically with pulsatile lavage. The shoulder was reduced and the subscapularis repaired with number 5 Ethibond suture modified [place] sutures, and reinforced with multiple number 2 Ethibond suture. The rotator interval was reapproximated laterally. The biceps tenodesis was incorporated with the pectoralis tendon repair using 5. Ethibond suture. The deltopectoral space was reapproximated with 2-0 Vicryl. The remaining tissue was closed with 0 Quill and 2-0 Quill running suture and steri-strips. A sterile dressing and shoulder immobilizer was placed. The patient was transferred to the recovery room. Physician loan assistant, Tova Kyle PA-C, required for surgery; including patient positioning, draping, tissue retraction, maintaining instrument position, cement removal, wound closure, and dressing placement. Implants Shoulder Innovations Inset Shoulder System; humeral short stem size 0, 28 x 6mm. Offset Humeral Head 16 x 42, R23mm Articulation. Glenoid Circular In Line Peg 20 x 6mm. Depuy CMW 2 (quick set) Gentamicin Bone Cement 20 g. Estimated Blood Loss -150.0 Drains No Pathology None sent Complications No immediate complications Conditi
[2022-03-18 10:16] VITALS: BP 126/74; PULSE 66; RESP 16; TEMP 36.6; O2SAT 97
--- NOTE | 2022-03-18 10:16 | WPDANESPN ---
Anes - Prog Note Post-Op Date/Time: 03/18/22 10:16 Vital Signs: Last Vital Signs Temp 36.0 C L 03/18/22 03:43 Pulse 68 03/18/22 03:43 Resp 20 03/18/22 03:43 BP 135/76 03/18/22 09:06 Pulse Ox 100 03/18/22 03:43 O2 Del Method Room Air 03/17/22 13:41 O2 Flow Rate 8 03/17/22 11:20 Pain Score (VAS): 0 I/O: Intake & Output 03/17/22 03/18/22 03/18/22 23:59 07:59 15:59 Intake Total 1110 590 Balance 1110 590 Patient Feedback: Patient satisfied with anesthetic care.
[2022-03-18 14:16] VITALS: BP 133/65; PULSE 67; RESP 16; TEMP 36.8; O2SAT 98
== END 2022-03-18 15:18 | disposition home or self-care (01) ==
LOC: ANHSURGERY 05:49 → ANH2MED 12:48
PROVIDERS: PCP Nurse Practitioner Adult Health; Visit Provider Orthopaedic Surgery
PROC: (CPT 23472; principal; 2022-03-17 07:30)
DX: M19.012 Primary osteoarthritis, left shoulder (principal); G89.18 Other acute postprocedural pain; I10 Essential (primary) hypertension; E78.2 Mixed hyperlipidemia; E03.9 Hypothyroidism, unspecified; E55.9 Vitamin D deficiency, unspecified; Z87.891 Personal history of nicotine dependence; E66.9 Obesity, unspecified; Z68.30 Body mass index [BMI] 30.0-30.9, adult
CPT/HCPCS: 23472; 64415; 36415; 73030; 86850; 86900; 86901; 97110; 97116; 97161; 97165; 97530; 97535; A4565; A9270; C1713; C1776; J0131; J0171; J0330; J0690; J1100; J1170; J1885; J2250; J2270; J2370; J2405; J2704; J2710; J2795; J3010; J3370; J7120

== ENCOUNTER 2022-08-24 09:17 | Outpatient (CLI) | payer OTHER, SELFPAY ==
--- NOTE | ~2022-08-24 | MM_ITS ---
EXAMINATION: MM screening naz BI w paula HISTORY: Screening mammogram TECHNIQUE: Craniocaudal and mediolateral oblique 3-D tomosynthesis images were obtained and synthetic 2-D images were generated. CAD analysis was submitted and interpreted. COMPARISON: No prior mammogram is available for comparison at this institution. BREAST PARENCHYMAL COMPOSITION: There are scattered areas of fibroglandular density. FINDINGS: Benign-appearing circumscribed approximately 5.5 x 6 mm mass is noted in the lower inner ri ght breast. There is no evidence of suspicious mass, calcification, or architectural distortion to carreno ggest malignancy in either breast. There has been no suspicious interval change. IMPRESSION: 1. No mammographic evidence of malignancy. 2. Recommend routine screening mammography in one year. BI-RADS Category 2: Benign finding(s). Reviewed, dictated and finalized at location A. R SPORTS COACH OR INSTRUCTOR
== END 2022-08-24 09:18 | disposition home or self-care (01) ==
LOC: ANHIMG 09:18
PROVIDERS: PCP Family Medicine; Visit Provider Nurse Practitioner Adult Health
DX: Z12.31 Encounter for screening mammogram for malignant neoplasm of breast (principal)
CPT/HCPCS: 77063; 77067

== ENCOUNTER 2024-04-08 07:26 | Outpatient (CLI) | payer OTHER, SELFPAY ==
--- NOTE | ~2024-04-08 | CT_ITS ---
CT Scan of the Chest without Contrast: Clinical Indication: Lung cancer screening, nicotine dependence Technique: Contiguous sections were acquired throughout the chest without intravenous contrast. Dose reduction technique was used on this scan by utilizing automated exposure control and iterative recon struction technique. The dose-length product (DLP) was 130.68 mGy-cm. Findings: There is no evidence of any significant mediastinal, hilar or axillary lymphadenopathy. The mediastin al soft tissues appear normal. There is no evidence of pleural or pericardial effusion. The lungs are clear. No pulmonary nodules or infiltrates are noted. Images through the upper abdomen reveal no abnormalities. Impression: Lung RADS 1: Negative. 12 month follow-up screening CT advised. Reviewed, dictated and finalized at location . Impression: Lung RADS 1: Negative. 12 month follow-up screening CT advised.
== END 2024-04-08 07:27 | disposition home or self-care (01) ==
PROVIDERS: PCP Family Medicine; Visit Provider Family Medicine
DX: Z12.2 Encounter for screening for malignant neoplasm of respiratory organs (principal); Z87.891 Personal history of nicotine dependence
CPT/HCPCS: 71271